=== PATIENT | male | born 1960 | race Two or more races ===

== ENCOUNTER 2022-02-12 16:37 | Inpatient (IN) | payer BC ==
[~2022-02-12] VITALS: Ht 160 cm; Wt 71.4 kg
[2022-02-12] MEDS ORDERED: HYDROmorphone HCL 2 MG/ML VL/or syr IV ONE (17:15)
[2022-02-12] MEDS ORDERED: SODIUM CHLORIDE 0.9% 1,000 ML IV ONE (17:15)
[2022-02-12] MEDS ORDERED: ONDANSETRON HCL 4 MG/2 ML VIAL IV ONE (17:15)
[2022-02-12 17:51] LABS: Calcium 7.5 mg/dL (8.5-10.1); Potassium 4.5 mmol/L (3.5-5.1)
[2022-02-12 17:54] LABS: BUN/Creatinine Ratio 14.4; Bilirubin, Total 0.6 mg/dL (0.2-1.0); Total Protein 6.3 g/dL (6.4-8.2)
[2022-02-12 18:10] LABS: Basophils # (auto) 0.1 10 ^3/uL (0-0.2); Basophils % (auto) 0.6 % (0.0-2.0); Eosinophils # (auto) 0.1 10 ^3/uL (0-0.8); Eosinophils % (auto) 1.4 % (0.0-7.0); Hematocrit 25.5 % (41.0-53.0); Hemoglobin 8.6 g/dL (13.5-17.5); Lymphocytes # (auto) 0.6 10 ^3/uL (0.4-5.4); Lymphocytes % (auto) 6.2 % (10.0-50.0); Mean Corpuscular Hemoglobin 29.7 pg (28.0-32.0); Mean Corpuscular Hgb Conc. 33.8 g/dL (32.0-36.0); Mean Corpuscular Volume 87.9 fL (80.0-100.0); Monocytes # (auto) 0.8 10 ^3/uL (0-1.3); Monocytes % (auto) 8.5 % (0.0-12.0); Neutrophils # (auto) 7.4 10 ^3/uL (1.6-8.6); Neutrophils % (auto) 83.3 % (37.0-80.0); Red Cell Distribution Width 13.6 % (11.8-14.3); White Blood Cell 8.9 10^3/uL (4.4-10.8)
[2022-02-12 18:22] LABS: INR 1.21 (0.9-1.15); Partial Thromboplastin Time 36.3 sec (24.6-33.4)
[2022-02-12] MEDS ORDERED: hydrALAZINE HCL 20 MG/ML VL IV PRN (19:15)
[2022-02-12] MEDS ORDERED: NITROGLYCERIN 0.4 MG SL TAB SL PRN (19:15)
[2022-02-12] MEDS ORDERED: FUROSEMIDE 40 MG/4 ML VIAL IV ONE (19:15)
[2022-02-12] MEDS ORDERED: MORPHINE SULFATE INJ 2 MG/ml SYRG IV PRN (19:15)
[2022-02-12] MEDS ORDERED: HYDR50TA15 PO (19:43)
[2022-02-12] MEDS ORDERED: AMLO-496 PO (19:43)
[2022-02-12] MEDS ORDERED: CARV6.2551 PO (19:43)
[2022-02-12] MEDS ORDERED: SEVE800T10 PO (19:43)
[2022-02-12 21:11] LABS: Cholesterol 121 mg/dL (< 200); HDL Cholesterol 52 mg/dL (40-59); LDL Cholesterol 61 mg/dL (< 100); Triglycerides 103 mg/dL (< 150)
[2022-02-12] MEDS ORDERED: PATIENTS OWN MEDICATION (Hydralazine Hcl 1 TAB) PO SCH (22:00)
[2022-02-12] MEDS ORDERED: PATIENTS OWN MEDICATION (Sevelamer Carbonate 2 TAB) PO SCH (22:00)
[2022-02-12] MEDS ORDERED: PATIENTS OWN MEDICATION (Carvedilol 1 TAB) PO SCH (22:00)
[2022-02-12] MEDS: hydrALAZINE HCL 25 MG TAB PO SCH (23:18)
[2022-02-12] MEDS: HEPARIN SODIUM (PORCINE) 5000 UNITS/ML 1ML VIAL SC SCH (23:19)
[2022-02-12] MEDS: CARVEDILOL 3.125 MG TAB PO SCH (23:20)
[2022-02-13] MEDS ORDERED: FUROSEMIDE 20 MG/2 ML VIAL IV SCH (06:00)
[2022-02-13] MEDS: hydrALAZINE HCL 25 MG TAB PO SCH ×3 (06:00→22:51)
[2022-02-13 07:25] LABS: Eosinophils # (auto) 0 10 ^3/uL (0-0.8); Hemoglobin 7.6 g/dL (13.5-17.5); Lymphocytes # (auto) 0.5 10 ^3/uL (0.4-5.4); Mean Corpuscular Hemoglobin 29.8 pg (28.0-32.0); Monocytes # (auto) 0.6 10 ^3/uL (0-1.3); Neutrophils # (auto) 7.3 10 ^3/uL (1.6-8.6); Red Cell Distribution Width 13.5 % (11.8-14.3)
[2022-02-13 07:27] LABS: Basophils # (auto) 0.1 10 ^3/uL (0-0.2); Basophils % (auto) 0.7 % (0.0-2.0); Hematocrit 22.4 % (41.0-53.0); Lymphocytes % (auto) 5.9 % (10.0-50.0); Mean Corpuscular Hgb Conc. 33.9 g/dL (32.0-36.0); Mean Corpuscular Volume 88.1 fL (80.0-100.0); Neutrophils % (auto) 86.4 % (37.0-80.0); Red Blood Cells 2.54 10^6/uL (4.5-5.90); White Blood Cell 8.5 10^3/uL (4.4-10.8)
[2022-02-13 07:46] LABS: Albumin 2.6 g/dL (3.4-5.0); BUN/Creatinine Ratio 14.3; Bilirubin, Total 0.5 mg/dL (0.2-1.0); Calcium 7.5 mg/dL (8.5-10.1)
[2022-02-13] MEDS: SEVELAMER 800 MG TAB PO SCH ×3 (08:29→18:37)
[2022-02-13] MEDS ORDERED: PATIENTS OWN MEDICATION (Amlodipine Besylate 1 TAB) PO SCH (10:00)
[2022-02-13] MEDS: CARVEDILOL 3.125 MG TAB PO SCH (10:09)
[2022-02-13] MEDS: amLODIPine BESYLATE 5 MG TAB PO SCH (10:11)
[2022-02-13] MEDS: HEPARIN SODIUM (PORCINE) 5000 UNITS/ML 1ML VIAL SC SCH ×2 (10:12→22:51)
[2022-02-13] MEDS: SODIUM BICARBONATE 650 MG TAB PO SCH ×2 (18:36→22:50)
[2022-02-13] MEDS: FUROSEMIDE 40 MG/4 ML VIAL IV SCH (18:36)
[2022-02-14 04:46] VITALS: BP 104/46
[2022-02-14] MEDS: hydrALAZINE HCL 25 MG TAB PO SCH ×3 (06:16→22:21)
[2022-02-14] MEDS: SODIUM BICARBONATE 650 MG TAB PO SCH ×4 (06:16→22:21)
[2022-02-14] MEDS: FUROSEMIDE 40 MG/4 ML VIAL IV SCH ×2 (06:16→17:10)
[2022-02-14] MEDS: SEVELAMER 800 MG TAB PO SCH ×3 (08:42→17:10)
[2022-02-14] MEDS: amLODIPine BESYLATE 5 MG TAB PO SCH (08:42)
[2022-02-14] MEDS: HEPARIN SODIUM (PORCINE) 5000 UNITS/ML 1ML VIAL SC SCH ×2 (08:43→22:22)
[2022-02-14] MEDS: METOPROLOL SUCCINATE XL 50 MG TAB PO SCH (08:43)
[2022-02-14 09:00] VITALS: BP 103/49
[2022-02-14 09:58] LABS: Basophils # (auto) 0.1 10 ^3/uL (0-0.2); Eosinophils # (auto) 0.1 10 ^3/uL (0-0.8); Hemoglobin 8.2 g/dL (13.5-17.5); Lymphocytes # (auto) 0.7 10 ^3/uL (0.4-5.4); Lymphocytes % (auto) 8.5 % (10.0-50.0); Neutrophils # (auto) 6.4 10 ^3/uL (1.6-8.6)
[2022-02-14 10:00] LABS: Basophils % (auto) 0.6 % (0.0-2.0); Eosinophils % (auto) 1.5 % (0.0-7.0); Hematocrit 23.9 % (41.0-53.0); Mean Corpuscular Hemoglobin 30.1 pg (28.0-32.0); Mean Corpuscular Hgb Conc. 34.4 g/dL (32.0-36.0); Mean Corpuscular Volume 87.6 fL (80.0-100.0); Monocytes # (auto) 0.8 10 ^3/uL (0-1.3); Monocytes % (auto) 9.5 % (0.0-12.0); Neutrophils % (auto) 79.9 % (37.0-80.0); Red Blood Cells 2.72 10^6/uL (4.5-5.90); Red Cell Distribution Width 13.4 % (11.8-14.3)
[2022-02-14] MEDS ORDERED: ACETAMINOPHEN 500 MG TAB PO ONE (10:00)
[2022-02-14 10:27] LABS: BUN/Creatinine Ratio 14.3; Calcium 7.6 mg/dL (8.5-10.1); Potassium 4.5 mmol/L (3.5-5.1)
[2022-02-14 13:00] VITALS: BP 111/65
[2022-02-14 16:57] VITALS: BP 113/55
[2022-02-14 22:00] VITALS: BP 107/49
[2022-02-15 05:00] VITALS: BP 107/53
[2022-02-15] MEDS: FUROSEMIDE 40 MG/4 ML VIAL IV SCH ×2 (06:00→17:07)
[2022-02-15] MEDS: hydrALAZINE HCL 25 MG TAB PO SCH ×3 (06:00→22:30)
[2022-02-15] MEDS: SODIUM BICARBONATE 650 MG TAB PO SCH ×4 (06:27→22:30)
[2022-02-15] MEDS: SEVELAMER 800 MG TAB PO SCH ×3 (08:23→17:08)
[2022-02-15] MEDS: amLODIPine BESYLATE 5 MG TAB PO SCH (08:23)
[2022-02-15] MEDS: METOPROLOL SUCCINATE XL 50 MG TAB PO SCH (08:24)
[2022-02-15] MEDS: HEPARIN SODIUM (PORCINE) 5000 UNITS/ML 1ML VIAL SC SCH ×2 (08:24→22:31)
[2022-02-15 09:22] VITALS: BP 122/63
[2022-02-15] MEDS ORDERED: ERGOCALCIFEROL 50,000 UNIT(1.25MG) CAP PO SCH (10:45)
[2022-02-15 12:30] VITALS: BP 114/59
[2022-02-15] MEDS: ACETAMINOPHEN 325 MG TAB PO PRN (16:36)
[2022-02-15 17:03] VITALS: BP 112/68
[2022-02-15 17:51] VITALS: BP 116/63
[2022-02-15 22:00] VITALS: BP 111/53
[2022-02-16 05:00] VITALS: BP 123/66
[2022-02-16] MEDS: hydrALAZINE HCL 25 MG TAB PO SCH ×3 (05:36→21:21)
[2022-02-16] MEDS: ACETAMINOPHEN 325 MG TAB PO PRN (05:36)
[2022-02-16] MEDS: FUROSEMIDE 40 MG/4 ML VIAL IV SCH ×2 (05:36→18:14)
[2022-02-16] MEDS: SODIUM BICARBONATE 650 MG TAB PO SCH ×4 (05:36→21:21)
[2022-02-16] MEDS: SEVELAMER 800 MG TAB PO SCH ×3 (07:59→18:14)
[2022-02-16] MEDS: METOPROLOL SUCCINATE XL 50 MG TAB PO SCH (08:08)
[2022-02-16] MEDS: amLODIPine BESYLATE 5 MG TAB PO SCH (08:08)
[2022-02-16] MEDS: HEPARIN SODIUM (PORCINE) 5000 UNITS/ML 1ML VIAL SC SCH ×2 (08:09→21:25)
[2022-02-16 08:52] VITALS: BP 113/59
[2022-02-16 12:10] LABS: Hepatitis C Antibody Negative (Negative)
[2022-02-16 13:41] VITALS: BP 108/60
[2022-02-16 16:48] VITALS: BP 122/59
[2022-02-16 22:00] VITALS: BP 140/69
[2022-02-17] MEDS: ACETAMINOPHEN 325 MG TAB PO PRN (00:52)
[2022-02-17 05:00] VITALS: BP 129/64
[2022-02-17] MEDS: SODIUM BICARBONATE 650 MG TAB PO SCH ×2 (05:51→14:06)
[2022-02-17] MEDS: hydrALAZINE HCL 25 MG TAB PO SCH ×2 (05:51→14:11)
[2022-02-17] MEDS: FUROSEMIDE 40 MG/4 ML VIAL IV SCH (05:51)
[2022-02-17 06:27] LABS: INR 1.18 (0.9-1.15); Partial Thromboplastin Time 37.9 sec (24.6-33.4)
[2022-02-17 06:31] LABS: Potassium 4.2 mmol/L (3.5-5.1)
[2022-02-17 06:32] LABS: Hemoglobin 7.6 g/dL (13.5-17.5); Monocytes # (auto) 0.6 10 ^3/uL (0-1.3); Monocytes % (auto) 7.6 % (0.0-12.0); Nucleated Red Blood Cells % 0.1 %; White Blood Cell 7.6 10^3/uL (4.4-10.8)
[2022-02-17 06:34] LABS: Basophils # (auto) 0.1 10 ^3/uL (0-0.2); Basophils % (auto) 0.8 % (0.0-2.0); Eosinophils # (auto) 0.3 10 ^3/uL (0-0.8); Eosinophils % (auto) 3.4 % (0.0-7.0); Lymphocytes % (auto) 12.6 % (10.0-50.0); Mean Corpuscular Hemoglobin 29.1 pg (28.0-32.0); Mean Corpuscular Hgb Conc. 34.3 g/dL (32.0-36.0); Mean Corpuscular Volume 84.8 fL (80.0-100.0); Neutrophils # (auto) 5.7 10 ^3/uL (1.6-8.6); Neutrophils % (auto) 75.6 % (37.0-80.0); Red Cell Distribution Width 13.5 % (11.8-14.3)
[2022-02-17 06:38] LABS: Albumin 2.4 g/dL (3.4-5.0); BUN/Creatinine Ratio 14.3; Calcium 6.6 mg/dL (8.5-10.1)
[2022-02-17 06:40] LABS: Bilirubin, Total 0.4 mg/dL (0.2-1.0); Total Protein 5.8 g/dL (6.4-8.2)
[2022-02-17] MEDS ORDERED: SODIUM CHL 0.9% 1000 ML BAG XX ONE (07:00)
[2022-02-17 09:03] VITALS: BP 119/61
[2022-02-17 09:04] VITALS: BP 119/61
[2022-02-17] MEDS ORDERED: AMLO-496 PO (09:12)
[2022-02-17] MEDS ORDERED: SEVE800T PO (09:12)
[2022-02-17] MEDS ORDERED: FURO1TAB31 PO (09:12)
[2022-02-17] MEDS ORDERED: METO25TA36 PO (09:12)
[2022-02-17] MEDS ORDERED: HYDR50TA15 PO (09:12)
[2022-02-17] MEDS ORDERED: SODI650T PO (09:14)
[2022-02-17] MEDS: SEVELAMER 800 MG TAB PO SCH ×2 (10:13→14:06)
[2022-02-17] MEDS: amLODIPine BESYLATE 5 MG TAB PO SCH (10:14)
[2022-02-17] MEDS: METOPROLOL SUCCINATE XL 50 MG TAB PO SCH (10:15)
[2022-02-17] MEDS: HEPARIN SODIUM (PORCINE) 5000 UNITS/ML 1ML VIAL SC SCH (10:20)
[2022-02-17 11:39] VITALS: BP 119/61
[2022-02-17 11:50] VITALS: BP 114/53
[2022-02-17] MEDS ORDERED: EPOETIN ALFA-EPBX 10,000 UNIT/1ML VIAL SC ONE (21:00)
== END 2022-02-17 15:13 | disposition home or self-care (01) | DRG 291 ==
LOC: ER 16:37 → TELE 19:43 → TELE-CENTR 02-13 18:12
PROVIDERS: ADMIT Registered Nurse; ATTEND Family Medicine
DX: I13.2 Hypertensive heart and chronic kidney disease with heart failure and with stage 5 chronic kidney disease, or end stage renal disease (principal); E43 Unspecified severe protein-calorie malnutrition; I50.31 Acute diastolic (congestive) heart failure; N17.0 Acute kidney failure with tubular necrosis; N18.6 End stage renal disease; J96.01 Acute respiratory failure with hypoxia; E87.20 Acidosis, unspecified; E55.9 Vitamin D deficiency, unspecified; D63.1 Anemia in chronic kidney disease; E11.22 Type 2 diabetes mellitus with diabetic chronic kidney disease; Z68.27 Body mass index [BMI] 27.0-27.9, adult; Z91.199 Patient's noncompliance with other medical treatment and regimen due to unspecified reason; Z91.15 Patient's noncompliance with renal dialysis
CPT/HCPCS: 36415; 70450; 71045; 76775; 78582; 80048; 80053; 80061; 82306; 83036; 83690; 83880; 83970; 84100; 84443; 84484; 85025; 85379; 85610; 85730; 86803; 87081; 87340; 87426; 93005; 93306; 93970; 96372; 96374; G0378; J2405

== ENCOUNTER 2022-09-09 19:59 | Inpatient (IN) | payer BC ==
[~2022-09-09] VITALS: Ht 160 cm; Wt 82.5 kg
[~2022-09-09 19:59] MED LIST: AMLO1TAB23 PO; CARV6.2551 PO; FURO1TAB31 PO; HYDR-4297 PO; METO25TA36 PO; SEVE800T PO; SEVE800T10 PO; SODI650T PO
[2022-09-09 21:05] LABS: Basophils # (auto) 0.1 10 ^3/uL (0-0.2); Basophils % (auto) 1.3 % (0.0-2.0); Eosinophils # (auto) 0.3 10 ^3/uL (0-0.8); Eosinophils % (auto) 4.9 % (0.0-7.0); Hematocrit 23.7 % (41.0-53.0); Hemoglobin 7.6 g/dL (13.5-17.5); Lymphocytes # (auto) 0.5 10 ^3/uL (0.4-5.4); Lymphocytes % (auto) 8.8 % (10.0-50.0); Mean Corpuscular Hemoglobin 28.6 pg (28.0-32.0); Mean Corpuscular Hgb Conc. 31.9 g/dL (32.0-36.0); Mean Corpuscular Volume 89.5 fL (80.0-100.0); Monocytes # (auto) 0.4 10 ^3/uL (0-1.3); Monocytes % (auto) 7.1 % (0.0-12.0); Neutrophils # (auto) 4.6 10 ^3/uL (1.6-8.6); Neutrophils % (auto) 77.9 % (37.0-80.0); Nucleated Red Blood Cells % 0.1 %; Red Blood Cells 2.65 10^6/uL (4.5-5.90); Red Cell Distribution Width 17.1 % (11.8-14.3)
[2022-09-09 21:25] LABS: Potassium 5.3 mmol/L (3.5-5.1)
[2022-09-09 21:36] LABS: Albumin 2.8 g/dL (3.4-5.0); Bilirubin, Total 0.6 mg/dL (0.2-1.0); Calcium 7.1 mg/dL (8.5-10.1); Total Protein 6.8 g/dL (6.4-8.2)
[2022-09-09] MEDS ORDERED: DEXTROSE (50%) 50ML SYRG IV ONE (23:15)
[2022-09-09] MEDS ORDERED: LACTATED RINGER'S 2,000 ML IV ONE (23:15)
[2022-09-09] MEDS ORDERED: cloNIDine HCL 0.1 MG TAB PO ONE (23:30)
[2022-09-09 23:38] LABS: Blood Alcohol < 3.0 mg/dL (<10); CRP High Sensitivity 0.54 mg/dL (< 0.3); Lipase 142 U/L (73-393); Magnesium 2.4 mg/dL (1.6-2.6)
[2022-09-10] VITALS (8 sets, daily range): BP systolic 145–168; BP diastolic 78–106
[2022-09-10] MEDS ORDERED: InsuLIN REG 1unit/0.01ml Soln (100units/ml) IV ONE
[2022-09-10] MEDS ORDERED: CALCIUM GLUC 1,000mg/50ml-NS 50 ML IV ONE
[2022-09-10 00:16] LABS: INR 1.4 (0.9-1.15); Partial Thromboplastin Time 32.4 SEC (24.5-34.5)
[2022-09-10] MEDS ORDERED: ACETAMINOPHEN 325 MG TAB PO PRN (00:30)
[2022-09-10] MEDS ORDERED: HYDROcodone-ACET 5/325MG TAB PO PRN (00:30)
[2022-09-10] MEDS ORDERED: SODIUM ZIRCONIUM CYCL 10 GM PAK PO ONE (00:30)
[2022-09-10] MEDS ORDERED: ONDANSETRON HCL 4 MG/2 ML VIAL IV PRN (00:30)
[2022-09-10] MEDS ORDERED: DOCUSATE SOD 100 MG CAP PO PRN (00:30)
[2022-09-10] MEDS ORDERED: DEXTROSE (50%) 50ML SYRG IV PRN (00:30)
[2022-09-10] MEDS ORDERED: SODIUM BICARBONATE 8.4 % INJ 50ML VIAL IV ONE (02:30)
[2022-09-10] MEDS ORDERED: ALBUTEROL SULF 2.5 MG/0.5ML(0.5%) NEB SOLN NEB ONE (02:30)
[2022-09-10] MEDS ORDERED: BUMETANIDE 2.5mg/10ml (0.25 mg/ml) INJ IV ONE (02:30)
[2022-09-10] MEDS ORDERED: NITROGLYCERIN 0.4 MG SL TAB SL PRN (03:00)
[2022-09-10] MEDS ORDERED: MORPHINE SULFATE INJ 2 MG/ml SYRG IV PRN (03:00)
[2022-09-10 04:30] LABS: Alcohol, Urine < 3.0 mg/dL (0-10); Amphetamine Screen, Urine NEGATIVE (NEGATIVE); Barbiturate Scree,Urine NEGATIVE (NEGATIVE); Benzodiazephine Screen, Urine NEGATIVE (NEGATIVE); Cannabinoid Screen, Urine NEGATIVE (NEGATIVE); Cocaine Screen, Urine NEGATIVE (NEGATIVE); Opiate Scree,Urine NEGATIVE (NEGATIVE); Phencyclidine Screen, Urine NEGATIVE (NEGATIVE)
[2022-09-10 05:06] LABS: Urine Bacteria NONE SEEN /hpf (None Seen); Urine Blood 1+ /uL (Negative); Urine Specific Gravity 1.015 (1.001-1.035); Urine Sperm PRESENT /hpf (None Seen); Urine WBC 2 /hpf (0 - 3)
[2022-09-10] MEDS: SODIUM CHLOR 0.9% PF (SALINE LOCK) 10ML VIAL/SYR IV SCH ×3 (06:30→22:07)
[2022-09-10] MEDS: ACCU-CHEK COMFORT CURVE STRIP VI SCH ×4 (06:31→22:06)
[2022-09-10 06:37] LABS: Basophils # (auto) 0 10 ^3/uL (0-0.2); Lymphocytes # (auto) 0.4 10 ^3/uL (0.4-5.4); Monocytes # (auto) 0.3 10 ^3/uL (0-1.3); Nucleated Red Blood Cells % 0.1 %; Red Cell Distribution Width 16.7 % (11.8-14.3); White Blood Cell 6.2 10^3/uL (4.4-10.8)
[2022-09-10 06:40] LABS: Basophils % (auto) 0.8 % (0.0-2.0); Eosinophils # (auto) 0 10 ^3/uL (0-0.8); Eosinophils % (auto) 0.7 % (0.0-7.0); Hematocrit 21.5 % (41.0-53.0); Mean Corpuscular Hemoglobin 29.3 pg (28.0-32.0); Mean Corpuscular Hgb Conc. 32.5 g/dL (32.0-36.0); Mean Corpuscular Volume 90.2 fL (80.0-100.0); Monocytes % (auto) 5.3 % (0.0-12.0); Neutrophils # (auto) 5.3 10 ^3/uL (1.6-8.6); Neutrophils % (auto) 86.2 % (37.0-80.0); Red Blood Cells 2.38 10^6/uL (4.5-5.90)
[2022-09-10] MEDS: SODIUM ZIRCONIUM CYCL 10 GM PAK PO SCH ×3 (06:45→22:06)
[2022-09-10] MEDS: SODIUM BICARBONATE 650 MG TAB PO SCH ×3 (06:46→22:07)
[2022-09-10] MEDS: InsuLIN REG 1unit/0.01ml Soln (100units/ml) SC SCH ×4 (06:47→22:00)
[2022-09-10 07:01] LABS: Albumin 2.8 g/dL (3.4-5.0); Calcium 7.1 mg/dL (8.5-10.1); Potassium 4.3 mmol/L (3.5-5.1)
[2022-09-10 07:05] LABS: BUN/Creatinine Ratio 16.1 (10.0-20.0); Bilirubin, Total 0.5 mg/dL (0.2-1.0); Total Protein 6.3 g/dL (6.4-8.2)
[2022-09-10] MEDS ORDERED: SEVELAMER 800 MG TAB PO SCH (08:00)
[2022-09-10 09:08] LABS: % Iron Saturation 8.8 % (20-55)
[2022-09-10] MEDS: CALCIUM ACETATE 667 MG CAP PO SCH ×3 (09:29→18:29)
[2022-09-10] MEDS: FUROSEMIDE INJECTION 100 MG in SODIUM CHL 0.9% 100 ML IV SCH ×3 (09:55→18:30)
[2022-09-10] MEDS: FAMOTIDINE (10MG/ML) 2ML VL IV SCH (10:00)
[2022-09-10] MEDS: B-COMPLEX W/ C & FOLIC ACID(NEPHROVITE TAB) PO SCH (10:00)
[2022-09-10] MEDS: METOPROLOL TARTRATE 25 MG TAB PO SCH ×2 (10:00→22:07)
[2022-09-10] MEDS: ASPirin 81 mg TAB PO SCH (10:00)
[2022-09-10] MEDS: amLODIPine BESYLATE 5 MG TAB PO SCH (10:00)
[2022-09-10] MEDS: metOLazone 5 MG TAB PO SCH (10:00)
[2022-09-10] MEDS: hydrALAZINE HCL 20 MG/ML VL IV PRN ×2 (11:58→23:37)
[2022-09-10] MEDS: SEVELAMER 800 MG TAB PO SCH ×2 (12:26→18:29)
[2022-09-10] MEDS: SODIUM FERR GLUC 62.5MG/5ML 125 MG in SODIUM CHL 0.9% 100 ML IV SCH (12:51)
[2022-09-11] MEDS ORDERED: FUROSEMIDE INJECTION 10 ML ONE ×2 (00:16→05:20)
[2022-09-11] MEDS: FUROSEMIDE INJECTION 100 MG in SODIUM CHL 0.9% 100 ML IV SCH ×5 (00:18→19:30)
[2022-09-11 00:30] LABS: Hematocrit 23.7 % (41.0-53.0)
[2022-09-11 00:32] LABS: Hemoglobin 7.7 g/dL (13.5-17.5)
[2022-09-11] MEDS: SODIUM ZIRCONIUM CYCL 10 GM PAK PO SCH ×3 (05:29→22:19)
[2022-09-11] MEDS: SODIUM CHLOR 0.9% PF (SALINE LOCK) 10ML VIAL/SYR IV SCH ×3 (05:29→22:30)
[2022-09-11] MEDS: SODIUM BICARBONATE 650 MG TAB PO SCH ×3 (05:29→22:19)
[2022-09-11 06:14] LABS: Basophils # (auto) 0.1 10 ^3/uL (0-0.2); Eosinophils # (auto) 0.3 10 ^3/uL (0-0.8); Hemoglobin 7.8 g/dL (13.5-17.5); Lymphocytes # (auto) 0.5 10 ^3/uL (0.4-5.4); Monocytes # (auto) 0.5 10 ^3/uL (0-1.3); Nucleated Red Blood Cells % 0.1 %; Red Blood Cells 2.65 10^6/uL (4.5-5.90)
[2022-09-11 06:17] LABS: Basophils % (auto) 1.2 % (0.0-2.0); Eosinophils % (auto) 4.8 % (0.0-7.0); Hematocrit 24.3 % (41.0-53.0); Lymphocytes % (auto) 7.2 % (10.0-50.0); Mean Corpuscular Hemoglobin 29.3 pg (28.0-32.0); Mean Corpuscular Volume 91.6 fL (80.0-100.0); Monocytes % (auto) 6.9 % (0.0-12.0); Neutrophils # (auto) 5.5 10 ^3/uL (1.6-8.6); Neutrophils % (auto) 79.9 % (37.0-80.0); Red Cell Distribution Width 16.7 % (11.8-14.3)
[2022-09-11] MEDS: ACCU-CHEK COMFORT CURVE STRIP VI SCH ×4 (06:23→22:29)
[2022-09-11] MEDS: InsuLIN REG 1unit/0.01ml Soln (100units/ml) SC SCH ×4 (06:23→22:29)
[2022-09-11 06:32] LABS: Potassium 4.5 mmol/L (3.5-5.1)
[2022-09-11 06:52] LABS: Albumin 2.8 g/dL (3.4-5.0); BUN/Creatinine Ratio 16.2 (10.0-20.0); Bilirubin, Total 0.9 mg/dL (0.2-1.0); Total Protein 6.1 g/dL (6.4-8.2)
[2022-09-11] MEDS: CALCIUM ACETATE 667 MG CAP PO SCH ×3 (08:33→18:25)
[2022-09-11] MEDS: SEVELAMER 800 MG TAB PO SCH ×3 (08:33→18:25)
[2022-09-11 09:12] LABS: Free T4 (Free Thyroxine) 0.93 ng/dL (0.89-1.76)
[2022-09-11 09:13] LABS: Free T3 1.97 pg/mL (2.3-4.2)
[2022-09-11] MEDS: EPOETIN ALFA-EPBX 10,000 UNIT/1ML VIAL SC SCH (09:49)
[2022-09-11] MEDS: FAMOTIDINE (10MG/ML) 2ML VL IV SCH (09:49)
[2022-09-11] MEDS: ASPirin 81 mg TAB PO SCH (09:50)
[2022-09-11] MEDS: amLODIPine BESYLATE 5 MG TAB PO SCH (09:50)
[2022-09-11] MEDS: metOLazone 5 MG TAB PO SCH (09:50)
[2022-09-11] MEDS: B-COMPLEX W/ C & FOLIC ACID(NEPHROVITE TAB) PO SCH (09:50)
[2022-09-11] MEDS: METOPROLOL TARTRATE 25 MG TAB PO SCH ×2 (09:51→22:18)
[2022-09-11] MEDS: SODIUM FERR GLUC 62.5MG/5ML 125 MG in SODIUM CHL 0.9% 100 ML IV SCH (12:51)
[2022-09-12] MEDS: FUROSEMIDE INJECTION 100 MG in SODIUM CHL 0.9% 100 ML IV SCH ×4 (01:28→19:06)
[2022-09-12 05:01] VITALS: BP 163/94
[2022-09-12] MEDS: SODIUM CHLOR 0.9% PF (SALINE LOCK) 10ML VIAL/SYR IV SCH ×3 (05:47→21:59)
[2022-09-12] MEDS: SODIUM ZIRCONIUM CYCL 10 GM PAK PO SCH ×3 (05:48→21:59)
[2022-09-12] MEDS: ACCU-CHEK COMFORT CURVE STRIP VI SCH ×4 (05:48→22:01)
[2022-09-12] MEDS: SODIUM BICARBONATE 650 MG TAB PO SCH ×3 (05:48→22:00)
[2022-09-12 05:53] LABS: Basophils # (auto) 0.1 10 ^3/uL (0-0.2); Neutrophils # (auto) 5.2 10 ^3/uL (1.6-8.6)
[2022-09-12] MEDS: InsuLIN REG 1unit/0.01ml Soln (100units/ml) SC SCH ×4 (05:54→22:00)
[2022-09-12 05:55] LABS: Basophils % (auto) 1.1 % (0.0-2.0); Eosinophils # (auto) 0.5 10 ^3/uL (0-0.8); Eosinophils % (auto) 6.6 % (0.0-7.0); Hematocrit 24.5 % (41.0-53.0); Lymphocytes # (auto) 0.5 10 ^3/uL (0.4-5.4); Lymphocytes % (auto) 7.8 % (10.0-50.0); Mean Corpuscular Hemoglobin 29.4 pg (28.0-32.0); Mean Corpuscular Hgb Conc. 32.8 g/dL (32.0-36.0); Mean Corpuscular Volume 89.5 fL (80.0-100.0); Monocytes # (auto) 0.6 10 ^3/uL (0-1.3); Monocytes % (auto) 8.2 % (0.0-12.0); Neutrophils % (auto) 76.3 % (37.0-80.0); Nucleated Red Blood Cells % 0.2 %; Red Blood Cells 2.73 10^6/uL (4.5-5.90); Red Cell Distribution Width 16.6 % (11.8-14.3); White Blood Cell 6.9 10^3/uL (4.4-10.8)
[2022-09-12] MEDS: hydrALAZINE HCL 20 MG/ML VL IV PRN (07:22)
[2022-09-12 07:27] LABS: BUN/Creatinine Ratio 15.3 (10.0-20.0); Calcium 7.5 mg/dL (8.5-10.1); Potassium 4.2 mmol/L (3.5-5.1)
[2022-09-12] MEDS: CALCIUM ACETATE 667 MG CAP PO SCH ×3 (08:13→18:20)
[2022-09-12] MEDS: SEVELAMER 800 MG TAB PO SCH ×3 (08:13→18:20)
[2022-09-12 09:00] VITALS: BP 131/67
[2022-09-12] MEDS: FAMOTIDINE (10MG/ML) 2ML VL IV SCH (09:38)
[2022-09-12] MEDS: ASPirin 81 mg TAB PO SCH (09:38)
[2022-09-12] MEDS: METOPROLOL TARTRATE 25 MG TAB PO SCH ×2 (09:39→22:00)
[2022-09-12] MEDS: metOLazone 5 MG TAB PO SCH (09:39)
[2022-09-12] MEDS: B-COMPLEX W/ C & FOLIC ACID(NEPHROVITE TAB) PO SCH (09:39)
[2022-09-12] MEDS: amLODIPine BESYLATE 5 MG TAB PO SCH (09:39)
[2022-09-12] MEDS: SODIUM FERR GLUC 62.5MG/5ML 125 MG in SODIUM CHL 0.9% 100 ML IV SCH (12:48)
[2022-09-12 14:00] VITALS: BP 145/74
[2022-09-12 16:35] VITALS: BP 145/79
[2022-09-12 20:00] VITALS: BP 140/80
[2022-09-13] MEDS: FUROSEMIDE INJECTION 100 MG in SODIUM CHL 0.9% 100 ML IV SCH ×5 (00:51→16:16)
[2022-09-13 01:33] VITALS: BP 152/85
[2022-09-13] MEDS: SODIUM CHLOR 0.9% PF (SALINE LOCK) 10ML VIAL/SYR IV SCH ×3 (06:02→21:42)
[2022-09-13] MEDS: SODIUM BICARBONATE 650 MG TAB PO SCH ×3 (06:03→21:42)
[2022-09-13 06:06] LABS: Hematocrit 24.4 % (41.0-53.0); Hemoglobin 7.9 g/dL (13.5-17.5); Lymphocytes # (auto) 0.5 10 ^3/uL (0.4-5.4); Monocytes # (auto) 0.6 10 ^3/uL (0-1.3); Red Blood Cells 2.72 10^6/uL (4.5-5.90)
[2022-09-13 06:08] LABS: Basophils # (auto) 0.1 10 ^3/uL (0-0.2); Basophils % (auto) 0.7 % (0.0-2.0); Eosinophils # (auto) 0.2 10 ^3/uL (0-0.8); Eosinophils % (auto) 2.7 % (0.0-7.0); Lymphocytes % (auto) 6.2 % (10.0-50.0); Mean Corpuscular Hemoglobin 29.1 pg (28.0-32.0); Mean Corpuscular Hgb Conc. 32.5 g/dL (32.0-36.0); Mean Corpuscular Volume 89.8 fL (80.0-100.0); Monocytes % (auto) 6.4 % (0.0-12.0); Neutrophils # (auto) 7.3 10 ^3/uL (1.6-8.6); Nucleated Red Blood Cells % 0.4 %; Red Cell Distribution Width 16.9 % (11.8-14.3); White Blood Cell 8.6 10^3/uL (4.4-10.8)
[2022-09-13 06:23] LABS: Albumin 2.6 g/dL (3.4-5.0); BUN/Creatinine Ratio 14.6 (10.0-20.0); Calcium 6.8 mg/dL (8.5-10.1); Potassium 3.6 mmol/L (3.5-5.1)
[2022-09-13 06:32] LABS: Bilirubin, Total 0.4 mg/dL (0.2-1.0); Total Protein 5.9 g/dL (6.4-8.2)
[2022-09-13] MEDS: ACCU-CHEK COMFORT CURVE STRIP VI SCH ×4 (06:48→21:42)
[2022-09-13] MEDS: InsuLIN REG 1unit/0.01ml Soln (100units/ml) SC SCH ×4 (06:49→21:46)
[2022-09-13 08:30] VITALS: BP 138/71
[2022-09-13] MEDS: metOLazone 5 MG TAB PO SCH (09:07)
[2022-09-13] MEDS: B-COMPLEX W/ C & FOLIC ACID(NEPHROVITE TAB) PO SCH (09:07)
[2022-09-13] MEDS: SEVELAMER 800 MG TAB PO SCH ×3 (09:08→18:26)
[2022-09-13] MEDS: METOPROLOL TARTRATE 25 MG TAB PO SCH ×2 (09:08→21:42)
[2022-09-13] MEDS: ASPirin 81 mg TAB PO SCH (09:09)
[2022-09-13] MEDS: PANTOPRAZOLE 40 MG TAB PO SCH (09:09)
[2022-09-13] MEDS: CALCIUM ACETATE 667 MG CAP PO SCH ×3 (09:09→18:26)
[2022-09-13] MEDS: amLODIPine BESYLATE 5 MG TAB PO SCH (09:09)
[2022-09-13] MEDS: EPOETIN ALFA-EPBX 10,000 UNIT/1ML VIAL SC SCH (11:40)
[2022-09-13 13:00] VITALS: BP 133/70
[2022-09-13] MEDS: SODIUM FERR GLUC 62.5MG/5ML 125 MG in SODIUM CHL 0.9% 100 ML IV SCH (13:54)
[2022-09-13 16:36] VITALS: BP 140/75
[2022-09-13 20:00] VITALS: BP 143/79
[2022-09-13 22:00] VITALS: BP 165/84
[2022-09-14] VITALS (7 sets, daily range): BP systolic 132–168; BP diastolic 63–84
[2022-09-14] MEDS: SODIUM BICARBONATE 650 MG TAB PO SCH ×3 (06:22→21:25)
[2022-09-14] MEDS: SODIUM CHLOR 0.9% PF (SALINE LOCK) 10ML VIAL/SYR IV SCH ×3 (06:22→21:28)
[2022-09-14] MEDS: InsuLIN REG 1unit/0.01ml Soln (100units/ml) SC SCH ×4 (06:23→21:26)
[2022-09-14] MEDS: ACCU-CHEK COMFORT CURVE STRIP VI SCH ×4 (06:23→21:25)
[2022-09-14 06:47] LABS: Basophils # (auto) 0.1 10 ^3/uL (0-0.2); Eosinophils # (auto) 0.3 10 ^3/uL (0-0.8); Eosinophils % (auto) 4.6 % (0.0-7.0); Hematocrit 26.4 % (41.0-53.0); Hemoglobin 8.6 g/dL (13.5-17.5); Lymphocytes # (auto) 0.5 10 ^3/uL (0.4-5.4); Lymphocytes % (auto) 6.6 % (10.0-50.0); Mean Corpuscular Hgb Conc. 32.7 g/dL (32.0-36.0); Mean Corpuscular Volume 88.8 fL (80.0-100.0); Monocytes # (auto) 0.5 10 ^3/uL (0-1.3); Monocytes % (auto) 6.6 % (0.0-12.0); Neutrophils # (auto) 5.9 10 ^3/uL (1.6-8.6); Neutrophils % (auto) 81.2 % (37.0-80.0); Nucleated Red Blood Cells % 0.3 %; Red Blood Cells 2.97 10^6/uL (4.5-5.90); Red Cell Distribution Width 16.6 % (11.8-14.3); White Blood Cell 7.3 10^3/uL (4.4-10.8)
[2022-09-14 06:50] LABS: Potassium 3.4 mmol/L (3.5-5.1)
[2022-09-14 06:55] LABS: Calcium 7.1 mg/dL (8.5-10.1)
[2022-09-14] MEDS: SEVELAMER 800 MG TAB PO SCH ×3 (07:57→18:24)
[2022-09-14] MEDS: CALCIUM ACETATE 667 MG CAP PO SCH ×3 (07:57→18:24)
[2022-09-14] MEDS: PANTOPRAZOLE 40 MG TAB PO SCH (09:58)
[2022-09-14] MEDS: METOPROLOL TARTRATE 25 MG TAB PO SCH ×2 (09:59→21:24)
[2022-09-14] MEDS: ASPirin 81 mg TAB PO SCH (09:59)
[2022-09-14] MEDS: B-COMPLEX W/ C & FOLIC ACID(NEPHROVITE TAB) PO SCH (09:59)
[2022-09-14] MEDS: amLODIPine BESYLATE 5 MG TAB PO SCH (09:59)
[2022-09-14] MEDS: metOLazone 5 MG TAB PO SCH (10:40)
[2022-09-14] MEDS: SODIUM FERR GLUC 62.5MG/5ML 125 MG in SODIUM CHL 0.9% 100 ML IV SCH (12:25)
[2022-09-15] MEDS: hydrALAZINE HCL 20 MG/ML VL IV PRN (04:18)
[2022-09-15 05:00] VITALS: BP 169/82
[2022-09-15] MEDS: SODIUM CHLOR 0.9% PF (SALINE LOCK) 10ML VIAL/SYR IV SCH ×2 (06:08→10:08)
[2022-09-15] MEDS: SODIUM BICARBONATE 650 MG TAB PO SCH ×2 (06:08→13:22)
[2022-09-15] MEDS: InsuLIN REG 1unit/0.01ml Soln (100units/ml) SC SCH ×2 (06:09→12:22)
[2022-09-15] MEDS: ACCU-CHEK COMFORT CURVE STRIP VI SCH ×2 (06:09→11:40)
[2022-09-15 06:37] LABS: Basophils # (auto) 0.1 10 ^3/uL (0-0.2); Eosinophils # (auto) 0.3 10 ^3/uL (0-0.8); Eosinophils % (auto) 3.4 % (0.0-7.0); Lymphocytes # (auto) 0.5 10 ^3/uL (0.4-5.4); Neutrophils # (auto) 6.5 10 ^3/uL (1.6-8.6); Nucleated Red Blood Cells % 0.4 %; White Blood Cell 7.8 10^3/uL (4.4-10.8)
[2022-09-15 06:40] LABS: Basophils % (auto) 0.7 % (0.0-2.0); Hematocrit 25.3 % (41.0-53.0); Hemoglobin 8.2 g/dL (13.5-17.5); Lymphocytes % (auto) 5.9 % (10.0-50.0); Mean Corpuscular Hemoglobin 29.1 pg (28.0-32.0); Mean Corpuscular Hgb Conc. 32.6 g/dL (32.0-36.0); Mean Corpuscular Volume 89.4 fL (80.0-100.0); Monocytes # (auto) 0.6 10 ^3/uL (0-1.3); Monocytes % (auto) 7.1 % (0.0-12.0); Neutrophils % (auto) 82.9 % (37.0-80.0); Red Blood Cells 2.83 10^6/uL (4.5-5.90); Red Cell Distribution Width 16.2 % (11.8-14.3)
[2022-09-15 06:56] LABS: Chloride 105 mmol/L (98-107); Potassium 3.9 mmol/L (3.5-5.1); Sodium 138 mmol/L (136-145)
[2022-09-15 07:20] LABS: Anion Gap 11 (5-15); Carbon Dioxide 22 mmol/L (21-32); Glucose 109 mg/dL (74-106)
[2022-09-15 07:21] LABS: BUN/Creatinine Ratio 14.3 (10.0-20.0); Calcium 6.8 mg/dL (8.5-10.1); GFR African American 9 mL/min; GFR Non-African American 8 mL/min
[2022-09-15 07:23] LABS: Blood Urea Nitrogen 109 mg/dL (7-18)
[2022-09-15 08:13] VITALS: BP 119/68
[2022-09-15] MEDS: CALCIUM ACETATE 667 MG CAP PO SCH ×2 (08:13→12:22)
[2022-09-15] MEDS: SEVELAMER 800 MG TAB PO SCH ×2 (08:13→12:22)
[2022-09-15 08:24] VITALS: BP 119/68
[2022-09-15] MEDS: ASPirin 81 mg TAB PO SCH (09:58)
[2022-09-15] MEDS: METOPROLOL TARTRATE 25 MG TAB PO SCH (09:59)
[2022-09-15] MEDS: B-COMPLEX W/ C & FOLIC ACID(NEPHROVITE TAB) PO SCH (09:59)
[2022-09-15] MEDS: PANTOPRAZOLE 40 MG TAB PO SCH (10:00)
[2022-09-15] MEDS: metOLazone 5 MG TAB PO SCH (10:00)
[2022-09-15] MEDS: amLODIPine BESYLATE 5 MG TAB PO SCH (10:00)
[2022-09-15] MEDS: EPOETIN ALFA-EPBX 10,000 UNIT/1ML VIAL SC SCH (12:24)
[2022-09-15 12:53] VITALS: BP 153/81
[2022-09-15] MEDS ORDERED: METO5TAB5 PO (15:20)
[2022-09-15 16:14] VITALS: BP 153/81
== END 2022-09-15 17:05 | disposition home or self-care (01) | DRG 682 ==
LOC: ER 19:59 → TELE 09-10 02:54 → TELE-WESTW 09-11 22:12
PROVIDERS: ADMIT Internal Medicine Geriatric Medicine; ATTEND Internal Medicine
PROC: 30233N1 Transfusion of Nonautologous Red Blood Cells into Peripheral Vein, Percutaneous Approach (ICD-10-PCS; principal; 2022-09-10)
DX: N17.9 Acute kidney failure, unspecified (principal); E43 Unspecified severe protein-calorie malnutrition; I13.2 Hypertensive heart and chronic kidney disease with heart failure and with stage 5 chronic kidney disease, or end stage renal disease; E87.20 Acidosis, unspecified; N18.5 Chronic kidney disease, stage 5; Z66 Do not resuscitate; E87.5 Hyperkalemia; E83.51 Hypocalcemia; D63.1 Anemia in chronic kidney disease; E88.09 Other disorders of plasma-protein metabolism, not elsewhere classified; E11.65 Type 2 diabetes mellitus with hyperglycemia; E87.8 Other disorders of electrolyte and fluid balance, not elsewhere classified; I50.9 Heart failure, unspecified; M89.8X9 Other specified disorders of bone, unspecified site; N50.89 Other specified disorders of the male genital organs; E11.22 Type 2 diabetes mellitus with diabetic chronic kidney disease; Z83.3 Family history of diabetes mellitus; Z91.158 Patient's noncompliance with renal dialysis for other reason; Z68.29 Body mass index [BMI] 29.0-29.9, adult; Z79.4 Long term (current) use of insulin
CPT/HCPCS: 36415; 36430; 80048; 80053; 80307; 80320; 81001; 82010; 82140; 82553; 82728; 82962; 83036; 83540; 83550; 83605; 83690; 83735; 83930; 84100; 84439; 84443; 84481; 84484; 85014; 85018; 85025; 85610; 85652; 85730; 86141; 86850; 86900; 86901; 86920; 94640; 96361; 96365; 99291; G0378; J1815; J2405; J3490